=== PATIENT | female | born 2000 | race African-American/Black ===

== ENCOUNTER 2020-07-08 13:19 | Emergency (ER) | payer OTHER, SELFPAY ==
[2020-07-08 13:35] VITALS: BP 126/75; PULSE 96; RESP 14; TEMP 37.8; O2SAT 98; BMI 27.4
--- NOTE | 2020-07-08 14:13 | ED.URI ---
HPI - URI/Sore Throat <ROSINA Fontenot - Last Filed: 07/08/20 15:19> General Chief Complaint: Upper Respiratory Symptoms Stated Complaint: Symptoms Of Strep Throat Time Seen by Provider: 07/08/20 13:22 Source: patient Mode of arrival: Ambulatory Limitations: no limitations History of Present Illness HPI Narrative: 20yo female presents to the ED for a sore throat for the past 24 hours. She is concerned that she may have strep. Patient states pain is worse with swallowing, she has had strep in the past and states this feels similar. She denies any cough, shortness of breath, rhinorrhea, ear pain, nasal congestion, or any other concerns. Patient denies any allergies or major medical issues. Related Data Previous Rx's Medication Instructions Recorded amoxicillin 500 mg PO BID 10 Days #20 cap 07/08/20 Allergies Allergy/AdvReac Type Severity Reaction Status Date / Time No Known Drug Allergies Allergy Verified 07/08/20 13:50 Review of Systems <ROSINA Fontenot - Last Filed: 07/08/20 15:19> Review of Systems Narrative: REVIEW OF SYSTEMS: GENERAL: Denies fevers. Reports chills, see HPI. HENT: No head trauma. Reports sore throat, see HPI. CARDIOVASCULAR: No chest pain. RESPIRATORY: No shortness of breath. GASTROINTESTINAL: No nausea, vomiting, diarrhea. MUSCULOSKELETAL: No weakness or injury. INTEGUMENTARY: No rash. NEURO: No memory loss, or confusion. Patient History <ROSINA Fontenot - Last Filed: 07/08/20 15:19> Medical History No significant medical problems (Acute) Social History Smoking Status: Unknown if ever smoked Smoking Status: Unknown if ever smoked alcohol intake frequency: holidays/special occasions only Substance Use Type: does not use Exam <ROSINA Fontenot - Last Filed: 07/08/20 15:19> Initial Vital Signs Initial Vital Signs: Vital Signs Temperature 100.1 F H 07/08/20 13:35 Pulse Rate 96 H 07/08/20 13:35 Respiratory Rate 14 07/08/20 13:35 Blood Pressure 126/75 07/08/20 13:35 Pulse Oximetry 98 07/08/20 13:35 PHYSICAL EXAMINATION: GENERAL: Well groomed, alert, and cooperative. Answers questions promptly and appropriately. Vital signs noted. HENT: Normocephalic, atraumatic. Ear canals patent. Oropharynx with erythema, tonsils 2+ and equal bilaterally, exudate noted, uvula midline and pronates. EYES: Conjunctiva pink, sclera white, no periorbital swelling. No discharge. CHEST: Normal to inspection and without deformities. CARDIOVASCULAR: Regular rate. RESPIRATORY: Normal respiratory rate, trachea midline, airway patent. No stridor, nasal flaring or accessory muscle use. Able to speak in full sentences. MUSCULOSKELETAL: Normal gait and coordination. Equal tone and mass bilaterally. EXTREMITIES: Moves all extremities. SKIN: Warm, dry, soft, appropriate color for ethnicity. No lesions, rashes, or wounds to visualized areas. NEURO: Alert and Oriented X 3. Good coordination. No ataxia or cognitive issues. PSYCH: Appropriate affect and mood. <Anika Khan DO - Last Filed: 07/09/20 08:31> Initial Vital Signs Initial Vital Signs: Vital Signs Temperature 100.1 F H 07/08/20 13:35 Pulse Rate 96 H 07/08/20 13:35 Respiratory Rate 14 07/08/20 13:35 Blood Pressure 126/75 07/08/20 13:35 Pulse Oximetry 98 07/08/20 13:35 Course <ROSINA Fontenot - Last Filed: 07/08/20 15:19> Course Course Narrative: Patient given Toradol and dexamethasone in the emergency department to help with pain. Orders Ordered: Discontinued Medications Dexamethasone (Decadron) 10 mg IV NOW ONE Stop: 07/08/20 14:09 Last Admin: 07/08/20 14:14 Dose: Not Given Documented by: LUCA Dexamethasone (Decadron) 10 mg PO NOW ONE Stop: 07/08/20 14:13 Last Admin: 07/08/20 14:19 Dose: 10 mg Documented by: LUCA Ketorolac Tromethamine (Toradol) 30 mg IM NOW ONE Stop: 07/08/20 14:09 Last Admin: 07/08/20 14:19 Dose: 30 mg Documented by: LUCA Vital Signs Vital signs: Vital Signs - 8 hr 07/08/20 13:35 Temperature 100.1 F H Pulse Rate 96 H Respiratory Rate 14 Blood Pressure 126/75 Pulse Oximetry 98 <Anika Khan DO - Last Filed: 07/09/20 08:31> Orders Ordered: Discontinued Medications Dexamethasone (Decadron) 10 mg IV NOW ONE Stop: 07/08/20 14:09 Last Admin: 07/08/20 14:14 Dose: Not Given Documented by: LUCA Dexamethasone (Decadron) 10 mg PO NOW ONE Stop: 07/08/20 14:13 Last Admin: 07/08/20 14:19 Dose: 10 mg Documented by: LUCA Ketorolac Tromethamine (Toradol) 30 mg IM NOW ONE Stop: 07/08/20 14:09 Last Admin: 07/08/20 14:19 Dose: 30 mg Documented by: LUCA Vital Signs Vital signs: Vital Signs - 8 hr 07/08/20 13:35 Temperature 100.1 F H Pulse Rate 96 H Respiratory Rate 14 Blood Pressure 126/75 Pulse Oximetry 98 MDM - URI/Sore Throat <ROSINA Fontenot - Last Filed: 07/08/20 15:19> Medical Records Attestation: I reviewed the patient's medical records. Lab Data Attestation: I reviewed the patient's lab results. Labs: Point of Care Testing Rapid Strep A Positive MDM Narrative Medical decision making narrative: History and examination consistent with strep pharyngitis. Patient's POC strep test is positive. Dexamethasone and Toradol given to help with pain and discomfort. Patient was prescribed amoxicillin, denies any allergies. She was encouraged to increase fluids. No concern for tonsillar abscess given unilateral presentation of soft palate and tonsils, uvula midline. Return precautions given for new or worsening symptoms. <Anika Khan DO - Last Filed: 07/09/20 08:31> Lab Data Labs: Point of Care Testing Rapid Strep A Positive Discharge Plan Departure Patient Disposition: Home Clinical Impression: Strep pharyngitis Discharge Date/Time: 07/08/20 14:32 Instructions: DI for Strep Throat Activity Restrictions/Additional Instructions: Thank you for entrusting me with your care today. As discussed, your test was positive for strep throat. We have given you a dose of dexamethasone in the emergency department today, this will continue to work for 3 days in decrease the swelling and irritation of your throat. You may feel increased jitteriness after this medication. I prescribed you antibiotics, please take this accordingly, finished the dose even if you start to feel better. This will prevent it from returning. Drink plenty of fluids, take 400 mg of ibuprofen every 6 hours as needed for pain. Return emergency department for any new or worsening symptoms. Prescriptions: New amoxicillin 500 mg capsule 500 mg PO BID 10 Days Qty: 20 RF: 0 <Anika Khan DO - Last Filed: 07/09/20 08:31> Cosign ED Attending Emma Attestation: I was immediately available in the department for consultation. Documentation has been reviewed. I agree with assessment and plan.
[2020-07-08] MEDS: DEXAMETHASONE 10 MG/ML VIAL PO (14:19)
[2020-07-08] MEDS: KETOROLAC 60 MG/2 ML VIAL 30 MG IM (14:19)
== END 2020-07-08 14:32 | disposition home or self-care (01) ==
PROVIDERS: Emergency Provider Nurse Practitioner
DX: J02.0 Streptococcal pharyngitis (principal)
CPT/HCPCS: 87880; 96372; 99283; J1100; J1885